=== PATIENT | female | born 1965 | race Caucasian/White ===

== ENCOUNTER 2016-10-29 03:00 | Inpatient (IN) | payer MEDICAID ==
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
--- NOTE | ~2016-10-29 | DS ---
Unit #: [id number] #: [id number] Patient: KATH DIAZ [id number] [facility] [address] [place] [address] [id number] MR#: [id number] NAME: KATH DIAZ ROOM: [facility] Age: 51 Sex: F Admission Date: 10/29/2016 : 1965 Discharge Date: 11/01/2016 Attending Physician: Robinson Agee M.D. Primary Care Physician: Primary Care Physician No DISCHARGE SUMMARY REASON FOR ADMISSION Carlita reports a history of alcohol dependence and has also been using amphetamines and some opioids. She had no suicidal ideation, but was in active detox and was admitted for stabilization. DIAGNOSTIC STUDIES LABORATORY RESULTS: Please see hospital chart. HOSPITAL COURSE The patient was admitted and placed on the alcohol detox protocol. Her home medications for asthma and hypertension were also restarted as well as her antidepressant and sleep medication. She had a brief period of inpatient detox with no significant adverse events such as hallucinations, delusions, or confusion, and on the date of discharge, she once again contracted for safety in the outpatient setting. She declined referral to a 28-day program and wished to go to outpatient care. DISCHARGE DIAGNOSES AXIS I: Alcohol dependence, amphetamine abuse, and major depression. AXIS II: No diagnosis. AXIS III: Asthma and hypertension. AXIS IV: AXIS V: DISCHARGE INSTRUCTIONS Follow up with the [facility], primary care physician, and AA. DISCHARGE MEDICATIONS No prescriptions were provided. The patient was to continue on citalopram 10 mg daily for depression, trazodone 150 mg at bedtime for insomnia, hydrochlorothiazide 12.5 mg daily for high blood pressure, Zestril 10 mg daily for high blood pressure, Proventil inhaler 2 puffs every 4 hours as needed for shortness of air, and Singulair 10 mg daily for asthma. CONDITION AT DISCHARGE Fair. PROGNOSIS Fair. DIET AND ACTIVITY Per primary care doctor. Unit #: [id number] #: [id number] Patient: KATH DIAZ Dictated by... Mona KernsH/maxim TD: 01/02/2017 16:23 JOB #: [id number] DISCHARGE SUMMARY Page 1 of 1 X Robinson Agee MD DISCHARGE SUMMARY
--- NOTE | ~2016-10-29 | HP ---
Unit #: [id number] #: [id number] Patient: FARIHA DIAZ [id number] [place] [address] [id number] I MR#: [id number] NAME: FARIHA DIAZ ROOM: P210 Age: 50 Sex: F Admission Date: 10/29/2016 : 1965 Attending Physician: Robinson Agee M.D. Admitting Physician: Robinson Agee M.D. Primary Care Physician: Primary Care Physician No HISTORY AND PHYSICAL HISTORY OF PRESENT ILLNESS Fariha is a 50 year old admitted to [address] [place] [address] because of her abuse of alcohol. PAST MEDICAL HISTORY 1. Long history of alcohol abuse. 2. History of illicit substance abuse to include methamphetamine and opioids. 3. High blood pressure. 4. Asthma. PAST SURGICAL HISTORY Nothing reported ALLERGIES No known drug allergies. SOCIAL HISTORY Smokes one pack per day, drinks a fifth of liquor on a daily basis. Has a history of illicit substance abuse to include opioids and methamphetamines, IV. FAMILY HISTORY Medically noncontributory. REVIEW OF SYSTEMS CONSTITUTIONAL: No fever or chills. HEENT: Denies any sore throat, ear pain or runny nose. CARDIOVASCULAR: Denies chest pain, irregular heart rhythm or palpitations. CHEST: Denies shortness of breath or cough. No hemoptysis. GASTROINTESTINAL: Denies nausea, vomiting, diarrhea or chronic constipation. ENDOCRINE: Denies history of increased thirst or urination. No recent significant weight loss or gain. GENITOURINARY: Denies dysuria, frequency, or hematuria. SKIN: Denies any rashes. HEMATOLOGIC: Denies history of increased bleeding or bruising. MUSCULOSKELETAL: Denies any hot, swollen joints. No generalized muscle pain. NEUROLOGIC: Denies problems with vision or speech. No frequent, severe headaches. No numbness, tingling or weakness in any extremities. Denies loss of bladder or bowel control. Unit #: [id number] #: [id number] Patient: FARIHA DIAZ CURRENT MEDICATIONS 1. Detox protocol 2. Singular 10 mg q day 3. HCTZ 12.5 mg q day 4. Zestril 10 mg q day 5. Citalopram 10 mg q day 6. Trazodone 150 mg q.h.s. PHYSICAL EXAMINATION GENERAL: Alert, well-nourished, in no apparent distress. VITAL SIGNS: Blood pressure 170/100, heart rate 78, respirations 16, temperature 98.6. WEIGHT: 112 pounds. HEIGHT: 5'4". SKIN: Warm and dry without rash or lesion. HEENT: Normocephalic. TMs not viewed. Oral and nasal passages clear. Conjunctivae clear. Pupils equal, round and reactive to light and accommodation. Extraocular movements intact. NECK: Supple without lymphadenopathy or thyromegaly. HEART: Regular rate and rhythm without murmur. LUNGS: Clear. ABDOMEN: Soft, nontender. : Not done. EXTREMITIES: No evidence of cyanosis, clubbing or edema. Moves all extremities without focal deficit. NEUROLOGICAL: Grossly within normal limits. Cranial Nerves: II: Visual perdomo are intact. III, IV AND : Extraocular movements are intact. Pupils are equal, round and reactive to light. V: Facial sensation is grossly normal. VII: Facial movements and expression are normal. VIII: Auditory acuity grossly intact. IX, X: Uvula is midline. Phonation is normal. XI: Patient shrugs shoulders and turns head normally. XII: Tongue protrudes in the midline. Sensory and Motor Function: Sensory and motor sensation is grossly normal. Motor: moves all extremities well. Coordination: Gait is normal. Deep Tendon Reflexes: Intact. IMPRESSION Psychiatric admission RECOMMENDATIONS PSYCHIATRIC: Per psychiatrist. MEDICAL: I see no contraindications to participating in facility's activities. MEDICAL PROGNOSIS Good. MEDICAL CONDITION Stable. Dictated by... Unit #: [id number] #: [id number] Patient: FARIHA DIAZ Alyssa Thomas PDagobertoADagoberto-Gracy. for Mona Lopez/hiwot TD: 10/30/2016 23:17 JOB #: [id number] HISTORY AND PHYSICAL Page 1 of 1 X Alyssa Thomas HISTORY AND PHYSICAL
== END 2016-11-01 12:40 | DRG 897 ==
LOC: P2S 05:23
PROC: HZ2ZZZZ Detoxification Services for Substance Abuse Treatment (ICD-10-PCS; principal; 2016-10-29)
DX: F10.239 Alcohol dependence with withdrawal, unspecified (principal); I10 Essential (primary) hypertension; J45.909 Unspecified asthma, uncomplicated; F17.210 Nicotine dependence, cigarettes, uncomplicated; F32.9 Major depressive disorder, single episode, unspecified
CPT/HCPCS: 86592